=== PATIENT | male | born 1955 | race Caucasian/White ===

== ENCOUNTER 2017-07-21 13:24 | Inpatient (IN) | payer OTHER, BC ==
[~2017-07-21] VITALS: Ht 188 cm; Wt 140.9 kg
--- NOTE | ~2017-07-21 | H ---
[facility] [place] [address] HISTORY AND PHYSICAL Name: CHAUNCEY GARCIA Room #: 362-P [facility] IN M.R.#: [id number] Admission: 07/21/17 Attend Phys: Beth Merida MD Discharge: Date of : 51 Report #: [id number] THIS REPORT FOR: //name// CC: Beth Merida DATE OF SERVICE: 07/21/2017 HISTORY OF PRESENT ILLNESS: The patient is a 61-year-old male who was admitted to the hospital with urinary tract infection and sepsis. The patient started with being very lethargic with a blood pressure in the 80s systolic and he had a blood workup done that showed the presence of white count of 25,000. The patient indicated that he has been having some flu-like symptoms for the last few days before coming to the hospital, but by further talking to the patient, he denies any upper respiratory tract symptoms. He denies any coughing. He denied any nausea or vomiting or any changes in his bowels. PAST MEDICAL HISTORY: Significant for multiple strokes in the past. The patient has a history of benign prostatic hypertrophy, hypertension, previous history of carotid endarterectomy, morbid obesity, depression, chronic pain syndrome, fluid retention. MEDICATIONS: Reviewed and reconciled. ALLERGIES: KETOCONAZOLE. SOCIAL HISTORY: The patient denies any smoking, alcohol use or drug use. The patient indicated that he has been at [facility] for 15 years and he indicated that he does not walk, but I am not sure about the cause of that. FAMILY HISTORY: Noncontributory. REVIEW OF SYSTEMS: The patient denies any headache, blurred vision, runny nose, sore throat, cough, chest pain, shortness of breath or palpitation. He denies any nausea or vomiting. He denies any changes in his bowels. He denies any urinary symptoms. PHYSICAL EXAMINATION: VITAL SIGNS: On arrival to the hospital, his temperature was 98.0, pulse 113, respirations 18, blood pressure 127/73. HEAD AND NECK: Unremarkable. NECK: Supple. LUNGS: Clear to auscultation with good air entry bilaterally. CARDIAC S1, S2, without any murmur or gallop. ABDOMEN: Benign. Bowel sounds were positive. The patient is morbidly obese. EXTREMITIES: Without any edema. [address] [address] HISTORY AND PHYSICAL Name: CHAUNCEY GARCIA Room #: [address] [place] [address] [place] ..#: [id number] Admission: 07/21/17 Attend Phys: Beth Merida MD Discharge: Date of : 51 Report #: [id number] LABORATORY DATA: The patient's white count showed 19.5, hemoglobin 11.6, hematocrit 35.1, platelet count 253, neutrophils are 88%. The patient's basic metabolic panel showed a sodium of 132, potassium 4.7, chloride 99, bicarbonate 24, BUN 27, creatinine 1.7, glucose 120. The patient's chest x-ray showed no acute process identified. Lactic acid is 1.2. Urinalysis was cloudy; positive for protein, blood, nitrite and leukocyte. The patient's white blood cells in the urine was 16-25. Repeated CBC showed white count of 8.2, hemoglobin 10.5, hematocrit 31.9, platelet count 228. Basic metabolic panel showed a sodium of 132, potassium 4.1, chloride 101, bicarbonate 22, BUN 19, creatinine 1.1, glucose 129, calcium 8.3. ASSESSMENT AND PLAN: 1. Urinary tract infection. 2. Sepsis. 3. Morbid obesity. 4. Hypotension. The patient was admitted to the hospital with the above-mentioned diagnoses. I will continue with the IV hydration, in addition to IV Rocephin while we are waiting for the culture results. The patient to start physical therapy and occupational therapy. We will continue with the patient's medications, but I will hold blood pressure medications for now. The patient has extreme erythema in the groin area, I will use nystatin cream to the area and we will continue monitoring the patient. <ELECTRONICALLY SIGNED> By: Beth Merida MD 07/23/17 [id number] Beth Merida MD /nt
[~2017-07-21 13:24] MED LIST: ACID CONTROL20 MG PO; APAP500 PO; ASPIRIN325; AUGMENTIN 875875 M1 PO; AVAPRO 150 MG150 M1 PO; DARVOCET-N 1001 EACH PO; FLOMAX PO; KEFLEX500 MG PO; LIPITOR20 MG PO; PAROXETINE HCL20 MG PO; PERCOCET 5-3251 EACH PO; PLAVIX 75 MG TA75 MG PO; TRIAMCINOLONE A80 G2 TOP
[2017-07-21 13:25] VITALS: BP 127/73
[2017-07-21] MEDS ORDERED: BUSPIRONE HCL10 MG PO (13:58)
[2017-07-21] MEDS ORDERED: ASPIRIN81 M2 PO (13:58)
[2017-07-21] MEDS ORDERED: LASIX 80 MG TAB80 MG PO (13:59)
[2017-07-21] MEDS ORDERED: TYLENOL325 MG PO (14:00)
[2017-07-21] MEDS ORDERED: K-TAB10 MEQ PO (14:02)
[2017-07-21] MEDS ORDERED: SENNA8.6 MG PO (14:03)
[2017-07-21] MEDS ORDERED: UNICOMPLEX M TA1 TA1 PO (14:03)
[2017-07-21] MEDS ORDERED: EUCERIN CREME120 GM TOP (14:04)
[2017-07-21 14:23] LABS: ABSOLUTE NEUTROPHILS 17.3 thou/uL (1.4-8.2); BASOPHILS 0.4 % (0.0-2.0); EOSINOPHILS 0.3 % (0.0-3.0); HEMATOCRIT 35.1 % (42.0-52.0); HEMOGLOBIN 11.6 gm/dL (14.0-18.0); LYMPHOCYTES 4.8 % (24.0-44.0); MCH 27.5 pg (26.0-34.0); MCHC 33.1 g/dL (28.0-37.0); MCV 83.2 fL (80.0-100.0); MONOCYTES 5.7 % (1.0-8.0); PLATELET COUNT 253 thou/uL (150-400); POLYS 88.8 % (36.0-66.0); RBC 4.22 mil/uL (4.50-6.00); RDW 15.4 % (10.5-14.5); WBC 19.5 thou/uL (4.0-11.0)
[2017-07-21 14:34] LABS: CALCIUM 8.7 mg/dL (8.5-10.1); CREATININE 1.7 mg/dL (0.7-1.3); POTASSIUM 4.7 mmol/L (3.5-5.1)
[2017-07-21 17:02] LABS: URINE BILIRUBIN NEGATIVE (Negative); URINE BLOOD 1+ (Negative); URINE CLARITY SL CLOUDY; URINE COLOR YELLOW; URINE GLUCOSE-RANDOM* NEGATIVE (Negative); URINE KETONES NEGATIVE (Negative); URINE LEUKOCYTES-REFLEX 1+ (Negative); URINE NITRITE-REFLEX POSITIVE (Negative); URINE PROTEIN (DIPSTICK) 1+ (Negative); URINE SPECIFIC GRAVITY 1.025 (1.005-1.035)
[2017-07-21 17:10] LABS: MUCUS 4-6 Moderate strn/LPF (None Seen); SQUAMOUS None Seen /LPF (0-3); URINE RBC 0-2 Rare /HPF (0-2)
[2017-07-21 17:11] LABS: BACTERIA-REFLEX >30 Many /HPF (None Seen); CRYSTALS None Seen /LPF (None Seen); FINE GRANULAR CASTS 0-3 Few /LPF (None Seen); HYALINE CASTS 0-3 Few /LPF (None Seen); WBC CLUMPS Few (None Seen)
[2017-07-21 17:38] VITALS: BP 103/53
[2017-07-21 18:38] VITALS: BP 118/52
[2017-07-21 18:54] VITALS: BP 113/66
[2017-07-21 20:05] VITALS: BP 118/52
[2017-07-21] MEDS ORDERED: PLAVIX 75 MG TA75 MG PO (21:19)
[2017-07-21] MEDS ORDERED: TRAMADOL 50 MG50 MG PO (21:28)
[2017-07-21] MEDS ORDERED: NYAMYC15 GM TOP (21:28)
[2017-07-21 23:50] VITALS: BP 120/69
[2017-07-22 04:15] VITALS: BP 138/70
[2017-07-22 06:51] LABS: MCV 83.8 fL (80.0-100.0); WBC 8.2 thou/uL (4.0-11.0)
[2017-07-22 06:55] LABS: HEMATOCRIT 31.9 % (42.0-52.0); HEMOGLOBIN 10.5 gm/dL (14.0-18.0); MCH 27.6 pg (26.0-34.0); RBC 3.81 mil/uL (4.50-6.00); RDW 15.5 % (10.5-14.5)
[2017-07-22 07:24] LABS: CALCIUM 8.3 mg/dL (8.5-10.1); CREATININE 1.1 mg/dL (0.7-1.3); POTASSIUM 4.1 mmol/L (3.5-5.1)
[2017-07-22 08:16] VITALS: BP 129/62
[2017-07-22 11:20] VITALS: BP 118/67
[2017-07-22 16:04] VITALS: BP 133/80
[2017-07-22 19:29] VITALS: BP 133/67
[2017-07-23 04:34] VITALS: BP 136/74
[2017-07-23 05:13] LABS: HEMATOCRIT 34.9 % (42.0-52.0); HEMOGLOBIN 11.5 gm/dL (14.0-18.0); MCH 27.5 pg (26.0-34.0); MCV 83.4 fL (80.0-100.0); PLATELET COUNT 258 thou/uL (150-400); RBC 4.19 mil/uL (4.50-6.00); RDW 15.5 % (10.5-14.5); WBC 6.7 thou/uL (4.0-11.0)
[2017-07-23 05:29] LABS: CALCIUM 8.1 mg/dL (8.5-10.1); CREATININE 0.9 mg/dL (0.7-1.3); POTASSIUM 4.3 mmol/L (3.5-5.1)
[2017-07-23 06:53] LABS: ABSOLUTE NEUTROPHILS 4.4 thou/uL (1.4-8.2); ANISOCYTOSIS SLIGHT; PLATELET ESTIMATE NORMAL
[2017-07-23 07:43] VITALS: BP 156/90
[2017-07-23 11:15] VITALS: BP 149/80
[2017-07-23 15:19] VITALS: BP 162/85
[2017-07-23 19:01] VITALS: BP 154/83
[2017-07-24 03:16] VITALS: BP 135/71
[2017-07-24 07:32] VITALS: BP 133/73
[2017-07-24 11:25] VITALS: BP 126/70
[2017-07-24 15:18] VITALS: BP 115/67
[2017-07-24 20:00] VITALS: BP 126/67
[2017-07-25 04:10] VITALS: BP 150/80
[2017-07-25 04:54] LABS: ABSOLUTE NEUTROPHILS 4.7 thou/uL (1.4-8.2); BASOPHILS 0.6 % (0.0-2.0); EOSINOPHILS 6.9 % (0.0-3.0); HEMATOCRIT 34.6 % (42.0-52.0); HEMOGLOBIN 11.4 gm/dL (14.0-18.0); LYMPHOCYTES 28.1 % (24.0-44.0); MCH 27.8 pg (26.0-34.0); MCHC 32.9 g/dL (28.0-37.0); MCV 84.2 fL (80.0-100.0); MONOCYTES 11.7 % (1.0-8.0); PLATELET COUNT 318 thou/uL (150-400); POLYS 52.7 % (36.0-66.0); RBC 4.11 mil/uL (4.50-6.00); RDW 15.6 % (10.5-14.5); WBC 8.8 thou/uL (4.0-11.0)
[2017-07-25 05:02] LABS: CALCIUM 8.7 mg/dL (8.5-10.1); CREATININE 0.8 mg/dL (0.7-1.3); POTASSIUM 4.2 mmol/L (3.5-5.1)
[2017-07-25 07:14] VITALS: BP 160/99
[2017-07-25] MEDS ORDERED: CEFUROXIME500 MG PO (08:34)
== END 2017-07-25 12:15 | DRG 872 ==
LOC: ER 13:24 → 3W 17:31 → EROBS 17:31 → 3W 18:47
PROVIDERS: Emergency Medicine; Internal Medicine
DX: A41.9 Sepsis, unspecified organism (principal); N39.0 Urinary tract infection, site not specified; N17.9 Acute kidney failure, unspecified; N40.0 Benign prostatic hyperplasia without lower urinary tract symptoms; E66.01 Morbid (severe) obesity due to excess calories; F32.9 Major depressive disorder, single episode, unspecified; G89.29 Other chronic pain; I95.9 Hypotension, unspecified; Z68.39 Body mass index [BMI] 39.0-39.9, adult; Z79.899 Other long term (current) drug therapy; Z88.8 Allergy status to other drugs, medicaments and biological substances; Z86.73 Personal history of transient ischemic attack (TIA), and cerebral infarction without residual deficits
CPT/HCPCS: 10879